=== PATIENT | female | born 1935 | race African-American/Black ===

== ENCOUNTER 2016-11-21 23:46 | Observation (INO) | payer OTHER, MEDICAID ==
[~2016-11-21] VITALS: Ht 165.1 cm; Wt 109.3 kg
[~2016-11-21 23:46] MED LIST: ALPR0.25 PO; ASA; ASPI-1073 PO; DEXL60CA3 PO; FENO135C PO; FENO45CA PO; HYDR25TA PO; IRBE300T42 PO; LEVO125T8 PO; LEVOTHYROXINE; LISI-604 PO; LOSARTAN; OMEP20CA10 PO; OMEP40CA PO; POTA20TA12 PO; POTA99TA4 PO; VALS320T2 PO; VERA180T PO; VERA180T8 PO; VERAPAMIL; VIT D; VIT E; VITA400T7 PO
[2016-11-22] MEDS ORDERED: ASPIRIN 81MG TABLET PO STA (01:17)
[2016-11-22] MEDS ORDERED: CLONIDINE 0.1MG TABLET PO ONE (01:30)
[2016-11-22] MEDS ORDERED: ASPIRIN 81MG TABLET ONE (01:31)
[2016-11-22 01:42] LABS: BASOPHILS % 0.8 % (0.0-2.0); EOSINOPHILS % 1.7 % (0.0-5.0); HEMATOCRIT. 40.9 % (36.0-48.0); HEMOGLOBIN. 14.5 g/dL (12.0-16.0); LYMPHOCYTES % 31.7 % (20.0-50.0); MEAN CORPUSCULAR HEMOGLOBIN 31.4 pg (28.0-32.0); MEAN PLATELET VOLUME 9.1 fl (7.4-10.4); NEUTROPHILS % 53.8 % (40.0-76.0); PLATELET 211 x1000/uL (130-400); RED CELL DISTRIBUTION WIDTH 13.5 % (11.6-14.6)
[2016-11-22 01:46] LABS: INR 1.1; PARTIAL THROMBOPLASTIN TIME 27.5 sec (24.0-34.0); PROTHROMBIN TIME 11.4 sec
[2016-11-22 01:52] LABS: CARBON DIOXIDE 28 mEq/L (21-32); CHLORIDE 101 mEq/L (98-107); TROPONIN I 0.06 ng/mL (0.00-0.04)
[2016-11-22] MEDS ORDERED: FUROSEMIDE 40MG/4ML VIAL IV STA (02:22)
[2016-11-22] MEDS ORDERED: NITROGLYCERIN OINT 1GM/INCH UDPKT TD STA (02:22)
[2016-11-22] MEDS ORDERED: POTASSIUM CHLORIDE 20MEQ TABLET SR PO ONE (03:00)
[2016-11-22] MEDS ORDERED: VERA180T PO (05:56)
[2016-11-22] MEDS ORDERED: POTA20TA82 PO (05:56)
[2016-11-22] MEDS ORDERED: VALS320T2 PO (05:56)
[2016-11-22] MEDS ORDERED: MOBI7 PO (05:56)
[2016-11-22] MEDS ORDERED: LEVO112T7 PO (05:56)
[2016-11-22] MEDS ORDERED: MONT10TA21 PO (05:56)
[2016-11-22] MEDS ORDERED: CLONIDINE 0.1MG TABLET PO PRN (09:00)
[2016-11-22] MEDS ORDERED: ONDANSETRON HCL 4MG/2ML VIAL IV PRN (09:00)
[2016-11-22] MEDS ORDERED: ACETAMINOPHEN 325MG TABLET PO PRN (09:00)
[2016-11-22] MEDS: MONTELUKAST SODIUM 10MG TABLET PO SCH (09:52)
[2016-11-22] MEDS: OMEPRAZOLE 20MG CAPSULE EXTENDED RELEASE PO SCH (09:53)
[2016-11-22] MEDS: ASPIRIN 81MG EC TABLET PO SCH (09:53)
[2016-11-22] MEDS: HYDROCHLOROTHIAZIDE 25MG TABLET PO SCH (09:53)
[2016-11-22] MEDS: LEVOTHYROXINE SODIUM 112MCG TABLET PO SCH (09:53)
[2016-11-22] MEDS: POTASSIUM CHLORIDE 20MEQ TABLET SR PO SCH ×2 (09:53→17:48)
[2016-11-22] MEDS: LOSARTAN POTASSIUM 100 MG TABLET PO SCH (09:53)
[2016-11-22] MEDS: ENOXAPARIN 30MG/0.3ML SYR SUBCUT SCH ×2 (09:54→21:28)
[2016-11-22] MEDS ORDERED: VERAPAMIL HCL 180MG ER TABLET PO SCH (11:00)
[2016-11-22 13:10] LABS: CREATINE KINASE MB FRACTION 1.4 ng/mL (0.5-3.6); T4 FREE 1.48 ng/dL (0.76-1.46); TROPONIN I 0.05 ng/mL (0.00-0.04)
[2016-11-22] MEDS ORDERED: ALPRAZOLAM 0.25 MG TABLET PO PRN (14:15)
[2016-11-22] MEDS: MAGNESIUM OXIDE 400MG TABLET PO SCH (15:21)
[2016-11-22 20:04] LABS: CREATINE KINASE MB FRACTION 1.4 ng/mL (0.5-3.6); TROPONIN I 0.05 ng/mL (0.00-0.04)
[2016-11-22] MEDS: VERAPAMIL 180 MG PO SCH (22:53)
[2016-11-23] MEDS: LEVOTHYROXINE SODIUM 112MCG TABLET PO SCH (06:32)
[2016-11-23] MEDS: OMEPRAZOLE 20MG CAPSULE EXTENDED RELEASE PO SCH (06:32)
[2016-11-23 06:53] LABS: HEMATOCRIT. 40.3 % (36.0-48.0); HEMOGLOBIN. 13.8 g/dL (12.0-16.0); MEAN CORPUSCULAR HEMOGLOBIN 30.9 pg (28.0-32.0); MEAN CORPUSCULAR VOLUME 90.4 fL (81.0-99.0); MEAN PLATELET VOLUME 9.6 fl (7.4-10.4); PLATELET 202 x1000/uL (130-400); RED BLOOD CELL COUNT 4.46 mill/uL (4.2-5.4); RED CELL DISTRIBUTION WIDTH 13.6 % (11.6-14.6)
[2016-11-23 07:15] LABS: CHLORIDE 103 mEq/L (98-107); HDL CHOLESTEROL 45 mg/dL (40-59); LDL CHOLESTEROL 91 mg/dL (5-100)
[2016-11-23 07:20] LABS: CARBON DIOXIDE 27 mEq/L (21-32)
[2016-11-23] MEDS ORDERED: POTASSIUM CHLORIDE 20MEQ TABLET SR PO NR (08:00)
[2016-11-23] MEDS: MAGNESIUM OXIDE 400MG TABLET PO SCH (08:22)
[2016-11-23] MEDS: LOSARTAN POTASSIUM 100 MG TABLET PO SCH (08:22)
[2016-11-23] MEDS: ASPIRIN 81MG EC TABLET PO SCH (08:22)
[2016-11-23] MEDS: HYDROCHLOROTHIAZIDE 25MG TABLET PO SCH (08:22)
[2016-11-23] MEDS: MONTELUKAST SODIUM 10MG TABLET PO SCH (08:22)
[2016-11-23] MEDS: POTASSIUM CHLORIDE 20MEQ TABLET SR PO SCH (08:23)
[2016-11-23] MEDS: VERAPAMIL 180 MG PO SCH (08:29)
[2016-11-23 13:12] LABS: PLATELET ESTIMATE NORMAL
[2016-11-23 14:34] VITALS: BP 117/74
== END 2016-11-23 14:54 | disposition home or self-care (01) ==
LOC: ER 23:46 → INTOOBSV 11-22 01:23 → 5WST 11-22 01:23 → EDBEDREQ 11-22 01:25 → ENRESERV 11-22 04:20
PROVIDERS: ADMIT Internal Medicine; ATTEND Internal Medicine
DX: R00.2 Palpitations (principal); E03.9 Hypothyroidism, unspecified; E87.6 Hypokalemia; E83.42 Hypomagnesemia; I25.10 Atherosclerotic heart disease of native coronary artery without angina pectoris; F41.9 Anxiety disorder, unspecified; E78.00 Pure hypercholesterolemia, unspecified; E05.90 Thyrotoxicosis, unspecified without thyrotoxic crisis or storm; K21.9 Gastro-esophageal reflux disease without esophagitis; I10 Essential (primary) hypertension; Z79.82 Long term (current) use of aspirin; Z79.899 Other long term (current) drug therapy; Z95.5 Presence of coronary angioplasty implant and graft
CPT/HCPCS: 36415; 70450; 71010; 80048; 80053; 80061; 82550; 82553; 83735; 83880; 84439; 84443; 84481; 84484; 85025; 85610; 85730; 93005; 93306; 96372; 96374; 99285; G0378; J1650; J1940